=== PATIENT | female | born 1980 | race Hispanic/Latino ===

== ENCOUNTER 2018-08-31 17:15 | Emergency (ER) | payer SELFPAY ==
--- NOTE | 2018-08-31 18:52 | CT ---
Date of service: 08/31/2018 PROCEDURE: CT HEAD WITHOUT CONTRAST. HISTORY: AMS COMPARISON: None. TECHNIQUE: Axial computed tomography images were obtained through the head/brain without intravenous contrast. Radiation dose: Total exam DLP = 885.43 mGy-cm. This CT exam was performed using one or more of the following dose reduction techniques: Automated exposure control, adjustment of the mA and/or kV according to patient size, and/or use of iterative reconstruction technique. FINDINGS: HEMORRHAGE: No intracranial hemorrhage. BRAIN: [place]-white matter differentiation is preserved. There is no mass, mass effect or abnormal extra-axial fluid collection. There is no territorial infarction. The midline sagittal structures are normal. VENTRICLES: The ventricles are normal in size, shape and configuration. CALVARIUM: There is no calvarial fracture or extracranial soft tissue swelling. PARANASAL SINUSES: Predominantly clear. MASTOID AIR CELLS: Predominantly clear. OTHER FINDINGS: None. IMPRESSION: No acute intracranial abnormality.
[2018-08-31 18:53] LABS: BASO % 0.3 % (0.0-2.0); EOS % 0.1 % (0.0-4.0); HEMOGLOBIN 13.2 g/dL (12.0-16.0); LYMPH # 1.4 K/uL (1.0-4.3); LYMPH % 14.3 % (20.0-40.0); MEAN CELL VOLUME 90.3 fl (81.0-99.0); MEAN CORPUSCULAR HEMOGLOBIN 30.2 pg (27.0-31.0); MEAN CORPUSCULAR HGB CONC 33.4 g/dL (33.0-37.0); MEAN PLATELET VOLUME 7.6 fl (7.2-11.7); MONO # 0.6 K/uL (0.0-0.8); MONO % 6.3 % (0.0-10.0); NEUT # 7.8 K/uL (1.8-7.0); NRBC % 0.1 % (0.0-0.0); RBC 4.36 Mil/uL (3.80-5.20); RED CELL DISTRIBUTION WIDTH 13.4 % (11.5-14.5); WHITE BLOOD COUNT 9.8 K/uL (4.8-10.8)
[2018-08-31 19:07] LABS: ALB/GLOB RATIO 1.3 (1.0-2.1); ALBUMIN 4.6 g/dL (3.5-5.0); ALT/SGPT 86 U/L (9-52); AST/SGOT 43 U/L (14-36); BLOOD UREA NITROGEN 7 mg/dl (7-17); CALCIUM 9.5 mg/dL (8.4-10.2); GFR NON-AFRICAN AMERICAN > 60
--- NOTE | 2018-08-31 19:25 | ED PDOC ---
HPI: General Adult Time Seen by Provider: 08/31/18 17:39 Chief Complaint (Nursing): Psychiatric Evaluation Chief Complaint (Provider): Possible AMS - Crisis evaluation History Per: Patient, Other (Police ) Additional Complaint(s): 38 yo female with no known medical history brought in by police for evaluation. PT denies complaints. PT denies taking daily medications. PT reports having "a long day". According to police patient was found in another persons car. She reported waiting for an Uber. A car registered to the patient was found parked in front of a loading dock. Pt is a missing person in [place]. Police states her mother reported her missing and she is on her way to the ER. Past Medical History Reviewed: Historical Data, Nursing Documentation, Vital Signs Vital Signs: Last Vital Signs Temp 98.9 F 08/31/18 17:17 Pulse 70 08/31/18 17:17 Resp BP Pulse Ox 98 08/31/18 17:17 Primary Care Provider: FAMILY PROVIDER,NO - Medical History PMH: No Chronic Diseases - Surgical History Surgical History: No Surg Hx - Family History Family History: States: No Known Family Hx - Living Arrangements Living Arrangements: With Family - Allergies Allergies/Adverse Reactions: Allergies Allergy/AdvReac Type Severity Reaction Status Date / Time No Known Allergies Allergy Verified 08/31/18 17:16 Review of Systems ROS Statement: Except As Marked, All Systems Reviewed And Found Negative Constitutional: Negative for: Fever, Chills Cardiovascular: Negative for: Chest Pain, Palpitations Respiratory: Negative for: Hemoptysis Gastrointestinal: Negative for: Nausea, Vomiting, Abdominal Pain, Diarrhea Genitourinary Female: Negative for: Dysuria, Frequency, Hematuria Physical Exam - Reviewed Nursing Documentation Reviewed: Yes Vital Signs Reviewed: Yes - Physical Exam Appears: Positive for: Well, Non-toxic, No Acute Distress Head Exam: Positive for: ATRAUMATIC, NORMAL INSPECTION, NORMOCEPHALIC Skin: Positive for: Normal Color, Warm, DRY Eye Exam: Positive for: Normal appearance, EOMI, PERRL ENT: Positive for: Normal ENT Inspection Neck: Positive for: Normal, Painless ROM Cardiovascular/Chest: Positive for: Regular Rate, Rhythm Respiratory: Positive for: CNT, Normal Breath Sounds Gastrointestinal/Abdominal: Positive for: Normal Exam, Soft Back: Positive for: Normal Inspection Extremity: Positive for: Normal ROM Neurological/Psych: Positive for: Awake, Alert, Normal Tone - Laboratory Results Result Diagrams: 08/31/18 18:45 08/31/18 18:45 Lab Results: Total Bilirubin 0.5 mg/dl (0.2-1.3) 08/31/18 18:45 AST 43 U/L (14-36) H 08/31/18 18:45 ALT 86 U/L (9-52) H 08/31/18 18:45 Alkaline Phosphatase 79 U/L (38-126) 08/31/18 18:45 Total Protein 8.1 G/DL (6.3-8.2) 08/31/18 18:45 Albumin 4.6 g/dL (3.5-5.0) 08/31/18 18:45 Globulin 3.5 gm/dL (2.2-3.9) 08/31/18 18:45 Albumin/Globulin Ratio 1.3 (1.0-2.1) 08/31/18 18:45 - ECG O2 Sat by Pulse Oximetry: 98 Pulse Ox Interpretation: Normal Medical Decision Making Medical Decision Making: Labs and Head CT normal. Parents at bedside. Reports similar episode 2 years ago. Disposition - Disposition Forms: [employer] (Zambian)
[2018-08-31 21:44] LABS: SQUAMOUS EPITHIAL < 1 /hpf (0-5); URINE BACTERIA RARE (<OCC); URINE BILIRUBIN NEGATIVE (NEGATIVE); URINE BLOOD LARGE (NEGATIVE); URINE CLARITY CLEAR (Clear); URINE COLOR STRAW (YELLOW); URINE GLUCOSE (UA) NEG (NEGATIVE); URINE LEUKOCYTE ESTERASE SMALL Leu/uL (Negative); URINE PROTEIN 30 mg/dL (NEGATIVE); URINE UROBILINOGEN 0.2-1.0 mg/dL (0.2-1.0)
[2018-08-31 22:01] LABS: BARBITURATES, UR NEGATIVE (NEGATIVE); BENZODIAZEPINES, UR NEGATIVE (NEGATIVE); OPIATES, UR NEGATIVE (NEGATIVE); PHENCYCLIDINE, UR NEGATIVE (NEGATIVE)
--- NOTE | 2018-08-31 22:03 | ED PDOC ---
- Laboratory Results Result Diagrams: 08/31/18 18:45 08/31/18 18:45 Lab Results: Total Bilirubin 0.5 mg/dl (0.2-1.3) 08/31/18 18:45 AST 43 U/L (14-36) H 08/31/18 18:45 ALT 86 U/L (9-52) H 08/31/18 18:45 Alkaline Phosphatase 79 U/L (38-126) 08/31/18 18:45 Total Protein 8.1 G/DL (6.3-8.2) 08/31/18 18:45 Albumin 4.6 g/dL (3.5-5.0) 08/31/18 18:45 Globulin 3.5 gm/dL (2.2-3.9) 08/31/18 18:45 Albumin/Globulin Ratio 1.3 (1.0-2.1) 08/31/18 18:45 Urine POC: Negative - ECG O2 Sat by Pulse Oximetry: 98 Medical Decision Making Medical Decision Making: PATIENT CLEARED BY PSYCH BY MONET NOVOA DX ADJUSTMENT DISORDER. PATIENT GIVEN INSTRUCTIONS TO THE [facility]. 22:00 PATIENT IS CLEARED FOR D/C. UDS NEGATIVE, UA (-) FOR INFECTION. NOTED LARGE BLOO, PATIENT IS ON MENSES. PATIENT STATES UNDER STANDING D/C PLAN AND AGREES. Disposition - Clinical Impression Clinical Impression: Adjustment disorder - POA Present On Arrival: None - Disposition Disposition: Routine/Home Disposition Time: 22:00 Condition: STABLE Additional Instructions: [facility] [address] [place] [address] TUESDAY-TUESDAY FROM 8AM-8PM TUESDAY-TUESDAY FROM 9AM-5PM Instructions: Adjustment Disorder Forms: [facility] (Gabonese) Print Language: CHINESE Progress Note - Review of Symptoms General: No: Chills, Night Sweats, Fatigue, Malaise HEENT: No: Head Aches Cardiovascular: No: Chest Pain, Palpitations Gastrointestinal: No: Nausea, Vomiting, Abdominal Pain Musculoskeletal: No: Muscle Pain
[2018-08-31 23:52] VITALS: BP 124/87; PULSE 72; RESP 18; TEMP 98.5
[2018-09-01 05:25] VITALS: O2SAT 98
--- NOTE | 2018-09-01 14:25 | CARD ---
APPROVED REPORT Date of service: 08/31/2018 EKG Measurement Heart [id number] <Conclusion> Normal sinus rhythm Normal Electrocardiogram
== END 2018-08-31 22:00 | disposition home or self-care (01) ==
LOC: H.ER 17:15
DX: F43.20 Adjustment disorder, unspecified (principal)
CPT/HCPCS: 70450; 80053; 81003; 85025; 93005; 99283; G0480